=== PATIENT | male | born 1975 | race Caucasian/White ===

== ENCOUNTER 2016-12-07 00:11 | Emergency (ER) | payer OTHER ==
[~2016-12-07] VITALS: Ht 188 cm; Wt 97.7 kg
[2016-12-07 00:15] VITALS: BP 131/85; PULSE 56; TEMP 98
== END 2016-12-07 02:40 | disposition home or self-care (01) ==
LOC: COL.ER 00:11
DX: S90.32XA Contusion of left foot, initial encounter (principal); W22.8XXA Striking against or struck by other objects, initial encounter; Y92.39 Other specified sports and athletic area as the place of occurrence of the external cause